=== PATIENT | female | born 1995 | race Caucasian/White ===

== ENCOUNTER → 2018-03-20 | Outpatient (CLI) | payer OTHER | LOC: M RAD 13:14 | DX: O02.81 Inappropriate change in quantitative human chorionic gonadotropin (hCG) in early pregnancy (principal); O36.80X0 Pregnancy with inconclusive fetal viability, not applicable or unspecified; Z3A.00 Weeks of gestation of pregnancy not specified | CPT/HCPCS: 76801 ==

== ENCOUNTER 2019-10-01 11:42 | Outpatient (CLI) | payer OTHER ==
[~2019-10-01] VITALS: Ht 162.6 cm; Wt 73.8 kg
[2019-10-01 11:59] VITALS: BP 117/72
--- NOTE | 2019-10-01 14:07 | HPE ---
DATE OF ADMISSION: 10/01/2019 24-year-old 3, para 1, aborto 1, LMP 03/10/2019, EDC 12/15/2019, has had decreased movement for 24 hours. PAST HISTORY: Had a spontaneous vaginal delivery male 8 pounds 2 ounces, 39 and 5 weeks of gestation August 29, 2017. April 10, 2018 has a spontaneous complete 8 weeks gestation. Labs are A+, HIV negative, hep negative, RPR negative. Varicella immune. Pap was normal. Urine negative. Gonorrhea and chlamydia are negative. 1-hour glucose was 159. The 3-hour GTT fasting 81, 1-hour 112, 2-hour 110, 3-hour 100. On examination today her blood pressure is 117/72, respirations 18, pulse 101 and temperature 96.6. Urine is 10/10, pH 7 and negative. She is in no distress. Symphysis fundus height is appropriate. Category 1 strip. No contractions. Accelerations were noted. Moderate variability. Baseline normal. Digital examination the cervix is thick, closed, posterior high presenting part. No vaginal bleeding or loss, appears to be vertex. The patient was given discharge instructions regarding kick chart, premature rupture of membranes and bleeding and when to call the provider. She was also counseled regarding long trips, she is driving to [place] and long periods of sedation can increase risk of deep venous thrombosis (DVT) or supraventricular tachycardia (SVT). Encouraged to drink more fluids, frequent stops and the possibility of prophylactic baby aspirin one daily starting 4 days before journey in order to reduce the incidence of DVT or superficial phlebitis. Also she could use full length anti-hose which also will contribute to reducing the incidence of DVT. The patient expressed understanding, all questions were answered. We had a 1-hour discussion and monitoring session. The patient was discharged undelivered. cc: [employer]PUT[employer]INE[employer] Zhanna Parada [facility]
== END 2019-10-01 13:38 | disposition home or self-care (01) ==
LOC: M LDO 11:42
PROVIDERS: ATTEND Obstetrics & Gynecology
DX: O36.8190 Decreased fetal movements, unspecified trimester, not applicable or unspecified (principal); Z87.59 Personal history of other complications of pregnancy, childbirth and the puerperium; Z88.0 Allergy status to penicillin; Z3A.00 Weeks of gestation of pregnancy not specified
CPT/HCPCS: G0378; G0463